=== PATIENT | male | born 1975 | race Hispanic/Latino ===

== ENCOUNTER 2021-12-15 08:37 | Emergency (ER) | payer OTHER ==
[~2021-12-15] VITALS: Ht 167.6 cm; Wt 95.0 kg
[2021-12-15 08:58] VITALS: BP 122/85
[2021-12-15 09:00] VITALS: BP 128/80
[2021-12-15 09:15] VITALS: BP 125/82
[2021-12-15 09:30] VITALS: BP 132/85
[2021-12-15] MEDS ORDERED: TOBREX OPTH5 ML/BTL OS (09:35)
[2021-12-15 09:42] VITALS: BP 125/82
== END 2021-12-15 09:58 | disposition home or self-care (01) | DRG 125 ==
LOC: ED 08:37
DX: S05.02XA Injury of conjunctiva and corneal abrasion without foreign body, left eye, initial encounter (principal); X58.XXXA Exposure to other specified factors, initial encounter; Y92.89 Other specified places as the place of occurrence of the external cause; Y99.0 Civilian activity done for income or pay